=== PATIENT | female | born 1985 | race Hispanic/Latino ===

== ENCOUNTER → 2022-04-02 | Day surgery (SDC) | payer OTHER ==
[~2022-04-02] MED LIST: FENTANYL CITRATE/PF 100MCG/2 ML INJ ONE; GAVISCON 80-141 EACH; METFORMIN HCL850 MG PO; MIDAZOLAM HCL 2 MG/2 ML VIAL ONE; ONDANSETRON HCL INJ 2MG/ML 2ML 2 MG/ML VIAL ONE; PROMETHAZINE HC25 M1 PO; PROPOFOL IV EMULSION 50 ML IV ONE
[2022-04-02 16:25] VITALS: BP 143/93
== END | disposition home or self-care (01) ==
LOC: OR 13:58
PROVIDERS: ATTEND Internal Medicine Gastroenterology
DX: K29.50 Unspecified chronic gastritis without bleeding (principal); B96.81 Helicobacter pylori [H. pylori] as the cause of diseases classified elsewhere; R19.5 Other fecal abnormalities; Z71.3 Dietary counseling and surveillance; E11.9 Type 2 diabetes mellitus without complications; E66.01 Morbid (severe) obesity due to excess calories; Z01.810 Encounter for preprocedural cardiovascular examination; Z79.84 Long term (current) use of oral hypoglycemic drugs; Z68.43 Body mass index [BMI] 50.0-59.9, adult; Z86.16 Personal history of COVID-19
CPT/HCPCS: 36415; 43239; 81025; 82948; 88305; 88342; 93005; C9113; J2250; J2405; J2704; J3010